=== PATIENT | female | born 1995 | race Caucasian/White ===

== ENCOUNTER → 2016-09-02 | Outpatient (CLI) | payer BC ==
[~2016-09-02] MED LIST: BCPILLS PO; EPP3/2 IM
--- NOTE | 2016-09-02 16:45 | ECHOCARDIOGRAM REPORT ---
*NOTICE TO RECEIVING DEMOCRAT AGENCY This information is strictly Confidential and protected under [place] law. [place] law prohibits you from making any further disclosure of this information unless further disclosure is expressly permitted by the written consent of the person to whom it pertains or is authorized by law. A general authorization for the release of medical or other information is not sufficient for this purpose. Hospital accepts no responsibility if the information is made available to any other person, INCLUDING THE PATIENT. Interpretation Summary * Name: NOREEN SORIA Study Date: 09/02/2016 03:00 PM BP: 120/66 mmHg * Patient Location: [facility] HR: 93 * : 1995 (M/d/yyyy) Gender: Female Height: 66 in * Age: 21 yrs Ethnicity: CA Weight: 160 lb * Ordering Physician: Noah Rudolph * Referring Physician: NOAH RUDOLPH * Performed By: Angelina Meneses RDCS * * Reason For Study: FAMILY HX OF AORTIC STENOSIS * BSA: 1.8 m2 * History: FAMILY HX OF AORTIC STENOSIS * -- Conclusions -- * 1. Normal left ventricular size and systolic function. EF 55-60%. No regional wall motion abnormalities. No left ventricular hypertrophy. * 2. No significant valvular abnormalities visualized. * 3. No prior study available for comparison. Procedure Details * A complete two-dimensional transthoracic echocardiogram was performed (2D, M-mode, Doppler and color flow Doppler). Left Ventricle * Normal left ventricular size and systolic function. EF 55-60%. No regional wall motion abnormalities. No left ventricular hypertrophy. Right Ventricle * The right ventricle is normal in size and function. * The right ventricular systolic function is normal as assessed by tricuspid annular plane systolic excursion (TAPSE) (normal >1.5 cm). Atria * The left atrial size is normal. * Right atrial size is normal. * There is no evidence of atrial septal defect, but resolution does not allow assessment for a patent foramen ovale. Mitral Valve * The mitral valve is normal in structure and function. * There is no mitral valve stenosis. * There is no mitral regurgitation noted. Tricuspid Valve * The tricuspid valve is normal in structure and function. * There is no tricuspid stenosis. * There is mild tricuspid regurgitation. Aortic Valve * The aortic valve is normal in structure and function. * The aortic valve is trileaflet. * No hemodynamically significant valvular aortic stenosis. * No aortic regurgitation is present. Pulmonic Valve * The pulmonary valve is inadequately visualized, but the Doppler data is adequate for interpretation. * There is no pulmonic valvular stenosis. * There is no significant pulmonary regurgitation. Great Vessels * The aortic root is normal size. * Aortic arch of normal dimension. Pericardium/Pleural * There is no pericardial effusion. Great Vessels * IVC not well visualized. MMode 2D Measurements and Calculations IVSd 0.87 cm IVSs 1.3 cm LVIDd 3.8 cm LVIDs 2.6 cm LVPWd 0.96 cm LVPWs 1.4 cm IVS/LVPW 0.91 FS 32.3 % EDV(Teich) 63.1 ml ESV(Teich) 24.4 ml EF(Teich) 61.3 % EDV(cubed) 56.1 ml ESV(cubed) 17.4 ml EF(cubed) 69.0 % % IVS thick 44.3 % % LVPW thick 42.8 % LV mass(C)d 105.2 grams LV mass(C)dI 57.8 grams/m\S\2 LV mass(C)s 105.0 grams LV mass(C)sI 57.7 grams/m\S\2 SV(Teich) 38.7 ml SI(Teich) 21.3 ml/m\S\2 SV(cubed) 38.7 ml SI(cubed) 21.3 ml/m\S\2 Ao root diam 3.0 cm Ao root area 7.1 cm\S\2 LA dimension 2.5 cm LA/Ao 0.84 Doppler Measurements and Calculations MV E max brown 60.6 cm/sec MV A max brown 73.7 cm/sec MV E/A 0.82 MV dec time 0.27 sec Ao V2 max 115.4 cm/sec Ao max PG 5.3 mmHg Ao max PG (full) 1.6 mmHg LV V1 max PG 3.7 mmHg LV V1 max 96.0 cm/sec TV E max brown 55.3 cm/sec TR max brown 205.2 cm/sec
== END | disposition home or self-care (01) ==
LOC: C.CPL 14:45
PROVIDERS: ATTEND Family Medicine
DX: Z82.49 Family history of ischemic heart disease and other diseases of the circulatory system (principal)

== ENCOUNTER → 2017-07-07 | Outpatient (CLI) | payer BC ==
[2017-07-11 02:20] LABS: CHLAMYDIA TRACH RNA*** NOT DETECTED (NOT DETECTED); GC (NEIS GONORRHOEAE)RNA** NOT DETECTED (NOT DETECTED); TRICHOMONAS VAGINALIS RNA** NOT DETECTED (NOT DETECTED)
== END | disposition home or self-care (01) ==
LOC: C.LABSPEC 17:55
PROVIDERS: ATTEND Physician Assistant
DX: N93.0 Postcoital and contact bleeding (principal)

== ENCOUNTER → 2017-07-10 | Outpatient (CLI) | payer BC | END | disposition home or self-care (01) | LOC: C.PAPS 09:38 | PROVIDERS: ATTEND Physician Assistant | DX: N93.0 Postcoital and contact bleeding (principal); R87.611 Atypical squamous cells cannot exclude high grade squamous intraepithelial lesion on cytologic smear of cervix (ASC-H) ==

== ENCOUNTER → 2017-08-16 | Outpatient (CLI) | payer BC | END | disposition home or self-care (01) | LOC: C.PATHSPEC 13:15 | PROVIDERS: ATTEND Obstetrics & Gynecology | DX: R87.610 Atypical squamous cells of undetermined significance on cytologic smear of cervix (ASC-US) (principal); R87.613 High grade squamous intraepithelial lesion on cytologic smear of cervix (HGSIL) ==

== ENCOUNTER → 2017-08-18 | Outpatient (CLI) | payer BC ==
--- NOTE | 2017-08-18 08:00 | DIAGNOSTIC IMAGING REPORT ---
THYROID ULTRASONOGRAPHY CLINICAL HISTORY: Neck pain and left lobe thyroid enlargement COMPARISON STUDY: No previous studies for comparison. FINDINGS: The right lobe measures 5.5 x 2.2 x 1.7 cm. The left lobe measures 5.7 x 1.7 x 2 cm. There are tiny bilateral hypodense nodules, several which contain colloid artifact. No suspicious thyroid masses are visualized. IMPRESSION: Tiny bilateral thyroid nodules. No suspicious thyroid nodules are visualized. Electronically signed by: Liban Torres M.D. 08/18/2017 7:59 AM Dictated Date/Time: 08/18/2017 7:58 AM
== END | disposition home or self-care (01) ==
LOC: C.ULTR 07:30
PROVIDERS: ATTEND Family Medicine
DX: E04.2 Nontoxic multinodular goiter (principal)